=== PATIENT | female | born 2000 | race Caucasian/White ===

== ENCOUNTER 2019-08-11 10:20 | Emergency (ER) | payer OTHER ==
[2019-08-11 10:52] LABS: CLARITY,URINE CLEAR (CLEAR)
[2019-08-11 10:54] LABS: BILIRUBIN,URINE COLOR INTERFERENCE (NEGATIVE); HCG UR QUAL NEGATIVE
[2019-08-11 11:14] LABS: RBC,URINE TNTC /HPF (0-5); SQUAMOUS EPITHELIAL CELL,UR FEW Squamous (<= Few)
[2019-08-11 11:15] LABS: BACTERIA,URINE Few /HPF (None Seen); MUCUS,URINE Few Strands
--- NOTE | 2019-08-11 11:43 | ED Physician Documentation ---
PD HPI FEMALE - Stated complaint Stated Complaint: FEMALE - Chief complaint Chief Complaint: UTI - History obtained from History obtained from: Patient - History of Present Illness Timing - onset: How many days ago (3) Timing - duration: Days (3) Timing - details: Gradual onset, Still present Associated symptoms: Dysuria, Urinary frequency, Hematuria. No: Fever, Abdominal pain, Back pain Contributing factors: No: Exposed to STD Similar symptoms before: Diagnosis (uti) Review of Systems Constitutional: denies: Fever, Chills GI: denies: Nausea, Vomiting : denies: Discharge Musculoskeletal: denies: Back pain PD PAST MEDICAL HISTORY - Past Medical History Cardiovascular: None Endocrine/Autoimmune: None - Present Medications Home Medications: Ambulatory Orders Medication Instructions Recorded Confirmed Naproxen 375 mg PO BID #20 tablet 08/11/19 Ondansetron Odt [Zofran] 4 mg TL Q6H PRN #10 tablet 08/11/19 Sulfamethox/Trimeth 800/160 1 each PO BID #14 tablet 08/11/19 [Bactrim Ds 800/160] - Allergies Allergies/Adverse Reactions: Allergies Allergy/AdvReac Type Severity Reaction Status Date / Time No Known Drug Allergies Allergy Verified 08/11/19 10:35 PD ED PE NORMAL - Vitals Vital signs reviewed: Yes - General General: Alert and oriented X 3, No acute distress, Well developed/nourished - Abdomen Abdomen: Soft, Non tender - Female Female : Deferred - Back Back: No CVA TTP - Derm Derm: Normal color, Warm and dry Results - Vitals Vitals: Vital Signs - 24 hr 08/11/19 08/11/19 10:24 11:48 Temperature 36.4 C L 36.8 C Heart Rate 67 55 L Respiratory 14 16 Rate Blood Pressure 128/75 113/70 O2 Saturation 100 99 Oxygen O2 Source Room air - Labs Labs: Laboratory Tests 08/11/19 10:30 Urine Color ORANGE Urine Clarity CLEAR Urine pH 7.0 Ur Specific [place] 1.010 Urine Protein Urine Glucose (UA) Urine Ketones Urine Occult Blood Urine Nitrite Urine Bilirubin COLOR INTERFERENCE Urine Urobilinogen Ur Leukocyte Esterase Urine RBC TNTC H Urine WBC 11-25 H Ur Epithelial Cells RARE Renal Tubular Ur Squamous Epith Cells FEW Squamous Urine Bacteria Few Urine Mucus Few Strands Ur Microscopic Review INDICATED Urine Culture Comments INDICATED Urine HCG, Qual NEGATIVE PD MEDICAL DECISION MAKING - ED course Complexity details: reviewed results, considered differential, d/w patient Departure - Departure Disposition: 01 Home, Self Care Clinical Impression: Urinary tract infection Qualifiers: Urinary tract infection type: acute cystitis Hematuria presence: with hematuria Qualified Code(s): N30.01 - Acute cystitis with hematuria Condition: Stable Record reviewed to determine appropriate education?: Yes Instructions: ED UTI Cystitis Female Follow-Up: ANAID GREER [Primary Care Provider] - Prescriptions: Naproxen 375 mg PO BID #20 tablet Ondansetron Odt [Zofran] 4 mg TL Q6H PRN #10 tablet PRN Reason: Nausea / Vomiting Sulfamethox/Trimeth 800/160 [Bactrim Ds 800/160] 1 each PO BID #14 tablet Comments: Stay well-hydrated. Continue the Azo as needed for urinary discomfort. You can add an anti-inflammatory such as naproxen twice daily with food. Add ondansetron if needed for nausea. Bactrim antibiotic twice daily for a week. Recheck if not improving well over the next several days and return sooner if worsening. Discharge Date/Time: 08/11/19 12:06
[2019-08-11] MEDS ORDERED: ACETAMINOPHEN 325 MG TABLET PO STA (11:47)
[2019-08-11] MEDS ORDERED: SULFAMETH/TRIMETH DS 800/160 MG TABLET PO STA (11:47)
[2019-08-11] MEDS ORDERED: ONDANSETRON ODT 4 MG TABLET TL STA (11:47)
[2019-08-11 11:49] VITALS: BP 113/70
== END 2019-08-11 12:06 | disposition home or self-care (01) ==
LOC: ED 10:20
DX: N30.01 Acute cystitis with hematuria (principal)
CPT/HCPCS: 81001; 81025; 87086; 87181; 99283; A9270; Q0162; 81003